=== PATIENT | female | born 1960 | race African-American/Black ===

== ENCOUNTER 2023-03-29 14:21 | Emergency (ER) | payer MEDICAID ==
[~2023-03-29] VITALS: Ht 157.5 cm; Wt 97.0 kg
[2023-03-29 14:30] VITALS: TEMP 98.6; O2SAT 98
[2023-03-29] MEDS ORDERED: IBUPROFEN 600MG TABLET PO ONE (17:00)
[2023-03-29] MEDS ORDERED: METH-773 MT (17:10)
[2023-03-29] MEDS ORDERED: IBUP-2029 MT (17:10)
[2023-03-29 17:23] VITALS: BP 146/84; PULSE 95; RESP 18
== END 2023-03-29 18:32 | disposition home or self-care (01) ==
LOC: ER 14:21
DX: S09.90XA Unspecified injury of head, initial encounter (principal); S89.92XA Unspecified injury of left lower leg, initial encounter; E11.9 Type 2 diabetes mellitus without complications; I10 Essential (primary) hypertension; V49.49XA Driver injured in collision with other motor vehicles in traffic accident, initial encounter; Y93.89 Activity, other specified; Y92.89 Other specified places as the place of occurrence of the external cause; Y99.8 Other external cause status
CPT/HCPCS: 72100; 99284